=== PATIENT | male | born 1960 | race Caucasian/White ===

== ENCOUNTER 2019-11-05 05:27 | Day surgery (SDC) ==
--- NOTE | 2019-10-29 09:00 | EKG Report ---
Test Performed on : 10/29/2019 08:55:40 AM Test Reason : PAT Blood Pressure : / mmHG Vent. Rate : 064 BPM Atrial Rate : 064 BPM P-R Int : 228 ms QRS Dur : 094 ms QT Int : 392 ms P-R-T Axes : 033 046 010 degrees QTc Int : 404 ms Sinus rhythm. with 1st degree AV block. Otherwise normal ECG No previous ECGs available Confirmed by Kimo Mcduffie MD ([id number]) on 10/30/2019 2:34:18 PM
[2019-10-29 09:35] LABS: URINE SOURCE CLEAN CATCH
[2019-10-29 09:50] LABS: BASO% 1.2 % (0.0-0.8); EOS# 0.37 X1000 (0.0-0.7); EOS% 4.3 % (0.0-10.0); HEMATOCRIT 43.9 % (42.0-52.0); HEMOGLOBIN 14.1 g/dL (14.0-18.0); LYMPH# 1.23 X1000 (1.2-3.4); LYMPH% 14.3 % (20.5-51.1); MCH 29.4 PG (27-31); MCHC 32.1 g/dL (33-37); MCV 91.6 FL (81-99); MONO# 0.58 X1000 (0.11-0.59); MONO% 6.8 % (1.7-9.3); MPV 9.5 FL (7.4-10.4); NEUT% 73.4 % (42.2-75.2); PLT 339 X1000 (130-400); RBC 4.79 XMIL (4.7-6.1); RDW 13.4 % (11.5-14.5); WBC 8.58 X1000 (4.8-10.8)
[2019-10-29 09:54] LABS: BILIRUBIN URINE NEGATIVE (NEGATIVE); BLOOD URINE NEGATIVE (NEGATIVE); COLOR YELLOW; GLUCOSE URINE NEGATIVE (NEGATIVE); KETONE URINE NEGATIVE (NEGATIVE); LEUKOCYTES URINE NEGATIVE (NEGATIVE); NITRITE URINE NEGATIVE (NEGATIVE); PH URINE 6.5; PROTEIN URINE NEGATIVE (NEGATIVE); SP GRAVITY URINE 1.025; TURBIDITY URINE CLEAR (CLEAR); UROBILINOGEN URINE 4 mg/dL (NORMAL)
[2019-10-29 09:56] LABS: UR EPITHELIAL CELLS <10 /HPF (<10); URINE BACTERIA NEGATIVE /HPF; URINE RBC <10 /HPF (<10); URINE WBC <10 /HPF (<10)
[2019-10-29 09:58] LABS: INR 1.01; PROTIME 13.4 Seconds (11.0-16.0)
[2019-10-29 09:59] LABS: PTT 30.7 Seconds (22.3-41.8)
[2019-10-29 10:15] LABS: HEMOGLOBIN A1C 5.6 % (4.8-6.0)
[2019-10-29 10:22] LABS: AGAP 10; ALBUMIN 3.8 g/dL (3.5-5.0); BUN 18 mg/dL (8-22); CALCIUM 9.3 mg/dL (8.8-10.2); CHLORIDE 102 mmol/L (98-107); COSMO 283; CREATININE 0.9 mg/dL (0.7-1.2); ESTIMATED GFR > 60; GLUCOSE 87 mg/dL (70-104); POTASSIUM 3.8 mmol/L (3.5-5.1); SODIUM 141 mmol/L (136-145); TCO2 29 mmol/L (25-35)
[2019-11-05] MEDS ORDERED: KEFZOL 1 GM/D5W 2 GM/100 ML IVPB ONE (05:53)
[2019-11-05] MEDS ORDERED: REGLAN ONE (05:53)
[2019-11-05] MEDS ORDERED: LYRICA ONE (05:53)
[2019-11-05] MEDS ORDERED: PEPCID ONE (05:53)
[2019-11-05] MEDS ORDERED: CELEBREX ONE (05:53)
[2019-11-05] MEDS ORDERED: LR 1,000 ML ONE (05:53)
[2019-11-05] MEDS ORDERED: COLACE ONE ×2 (05:53→06:06)
[2019-11-05] MEDS ORDERED: VANCOMYCIN ONE (06:27)
[2019-11-05] MEDS ORDERED: SENSORCAINE 0.25%/EPI 1:200,000 ONE (06:27)
[2019-11-05] MEDS ORDERED: TORADOL ONE (06:27)
[2019-11-05] MEDS ORDERED: SODIUM CHLORIDE 0.9% ONE (06:27)
[2019-11-05] MEDS ORDERED: DURAMORPH ONE (06:27)
[2019-11-05] MEDS ORDERED: NEOSPORIN G.U. IRRIGANT ONE (06:28)
[2019-11-05] MEDS ORDERED: EXPAREL 1.3% ONE (06:28)
[2019-11-05] MEDS ORDERED: DIPRIVAN 1% ONE ×2 (06:34→06:51)
[2019-11-05] MEDS ORDERED: XYLOCAINE-MPF 2% ONE (06:36)
[2019-11-05] MEDS ORDERED: FENTANYL ONE (06:37)
[2019-11-05] MEDS ORDERED: VERSED ONE (06:38)
[2019-11-05] MEDS: CYKLOKAPRON 1,000 MG/NS 2,000 MG/200 ML IVPB ONE ×2 (07:14→08:31)
[2019-11-05] MEDS ORDERED: DECADRON ONE (07:34)
[2019-11-05] MEDS ORDERED: OFIRMEV 1000 MG/ISOTONIC SOLN 1,000 MG/100 ML BOTTLE ONE (07:34)
[2019-11-05] MEDS ORDERED: ZOFRAN ONE (08:28)
[2019-11-05] MEDS ORDERED: NS 1,000 ML ONE (09:20)
--- NOTE | 2019-11-05 10:00 | Diag Imaging Result Doc PS360 ---
KNEE 1-2 VIEWS-LEFT - 11/05/2019 INDICATION: left TKA TECHNIQUE: Two views COMPARISON: None FINDINGS: There has been left total knee arthroplasty with patellar resurfacing. Alignment is anatomic. No hardware fracture or loosening. IMPRESSION: No complication. Electronically signed by Amari Lee 11/05/2019 9:58 AM
[2019-11-05] MEDS ORDERED: OXY IR PO PRN ×2 (10:15)
[2019-11-05] MEDS ORDERED: ZOFRAN PO PRN (10:15)
[2019-11-05] MEDS ORDERED: MORPHINE IV PRN ×3 (10:15)
[2019-11-05] MEDS ORDERED: MILK OF MAGNESIA PO PRN (10:15)
[2019-11-05] MEDS: TYLENOL PO SCH ×2 (12:22→18:45)
[2019-11-05] MEDS ORDERED: NEURONTIN PO PRN (13:07)
[2019-11-05 14:28] LABS: URINE SOURCE CATH
[2019-11-05 14:34] LABS: BILIRUBIN URINE NEGATIVE (NEGATIVE); BLOOD URINE TRACE (NEGATIVE); COLOR YELLOW; GLUCOSE URINE NEGATIVE (NEGATIVE); KETONE URINE NEGATIVE (NEGATIVE); LEUKOCYTES URINE NEGATIVE (NEGATIVE); NITRITE URINE NEGATIVE (NEGATIVE); PH URINE 7.5; PROTEIN URINE NEGATIVE (NEGATIVE); SP GRAVITY URINE 1.022; TURBIDITY URINE HAZY (CLEAR); UROBILINOGEN URINE NORMAL (NORMAL)
[2019-11-05 14:35] LABS: UR EPITHELIAL CELLS <10 /HPF (<10); URINE BACTERIA NEGATIVE /HPF; URINE WBC <10 /HPF (<10)
--- NOTE | 2019-11-05 17:42 | OPERATIVE NOTE ---
PROCEDURE DATE: PREOPERATIVE DIAGNOSIS: Degenerative osteoarthritis left knee. POSTOPERATIVE DIAGNOSIS: Degenerative osteoarthritis left knee. PROCEDURE: Left total knee arthroplasty with Attune size 9 posterior stabilized femur, a size 9 tibial tray, a 5 mm rotating platform tibial insert, and a 38 mm medialized anatomic patella. SURGEON: Dr. Sabas Friedman. 1ST CREDIT INTERN: DAGO Daniels, necessary proper position, retraction and manipulation of the extremity during the case and improved efficiency. SECOND CREDIT INTERN: Camron Odell RN. ANESTHESIA: Spinal. IV FLUIDS: 1500 mL lactated Ringer's. ESTIMATED BLOOD LOSS: 35 mL. TOURNIQUET TIME: 85 minutes at 350 mmHg. INDICATION: The patient is a pleasant 59-year-old male with chronic history of worsening pain and discomfort of his left knee. Has continued pain and discomfort despite appropriate nonoperative and operative treatment with a knee arthroscopy. Patient was noted to have significant osteoarthritis. He has continued pain and discomfort. His pain has worsened and has progressed to affect his activities of daily living. Recommendation to proceed with left total knee arthroplasty was offered. The risks and benefits of surgery were explained, including the risks of anesthesia, , bleeding, infection, failure to relieve pain, postoperative stiffness nerve injury, blood clots, and other imponderables. All questions answered. Patient and family wished to proceed with surgery. PROCEDURE: The patient was taken to the operative room, underwent spinal anesthesia. After adequate anesthesia was obtained, patient's left lower extremity was subsequently prepped and draped in usual sterile fashion. An Esmarch was used to exsanguinate the left lower extremity and tourniquet was inflated to 350 mmHg. A standard anterior incision was made with a skin knife. Medial and lateral skin envelopes were developed and patella fat pad was excised. Retractors were then placed. Approximately 1 cm anterior to the PCL insertion, a starting reamer was passed. Intramedullary guide with a distal femur cutting block was pinned in position. Distal femoral cut was then performed in standard fashion. The sizing block was then placed and was measured size 9. Corresponding pins were placed. A size 9 cutting block was pinned in position. Anterior, posterior, and chamfer cuts were then made. Attention then turned to the proximal tibia. Using the extramedullary guide, the proximal tibia cutting block was pinned in position. Had good alignment confirmed with the alignment kate. The proximal tibia was then resected. Medial and lateral menisci were excised. A curved osteotome was used to remove the posterior osteophytes off the distal femur. The spacer block was then placed. Had good soft tissue balancing in both flexion and extension. Attention then turned back to the proximal tibia where a size 9 tibial tray appeared be correct size was pinned in position followed by a central reamer and a fin punch. A box cutting guide was then pinned on the distal femur. A box cut was then performed. After this had been performed, a trial femoral component was then placed and 2 lug holes were drilled. Trial tibial insert was then placed and good soft tissue balancing. The patella was everted and resected in standard fashion. Patella clamp was then placed. Size 38 appeared to correct size. Corresponding holes were drilled. The trial patella component then placed and gets good patellofemoral tracking. After this had been performed, the trial components were removed. Copious irrigation was then performed with antibiotic pulsatile lavage. Vancomycin was mixed in the cement on the back table. Sequential cementing was then performed first with the tibial tray and excess cement was removed with a [place] followed by the femoral component and excess cement was removed with a [place]. A trial tibial insert was then placed in full extension. Axial loading was maintained while cement cured. The patella component was then cemented in standard fashion. Patella clamp was placed. Exparel was then placed in deep soft tissue as well as subcutaneous tissue. After cement had cured, peripheral cement was removed with a small osteotome. The 5 mm rotating platform tibial insert appeared to correct size. Exparel was placed in the deep posterior capsule. The wound was copiously irrigated with antibiotic pulsatile lavage. A 5 mm rotating platform tibial insert was then placed. The knee was then carried through range of motion. It had good range of motion, good soft tissue balance, good patellofemoral tracking. A 1/8 Hemovac drain was placed was not sewn in. Copious irrigation performed once again with antibiotic pulsatile lavage. Number 1 Vicryl then used to repair the arthrotomy followed by 2-0 Vicryl to the subcutaneous tissue and skin celina. Adaptic, sterile 4 x 4, Webril, cryo unit, and Emmanuel wrap to the left lower extremity. Patient tolerated the procedure well and was transferred to recovery room in stable condition. cc: Sabas Friedman MD
[2019-11-05] MEDS ORDERED: VANCOMYCIN 1 GM/NS 1 GM/250 ML IVPB IV ONE (18:00)
[2019-11-05] MEDS: NS 1,000 ML IV SCH ×2 (18:46→21:47)
[2019-11-05] MEDS: COLACE PO SCH (21:47)
[2019-11-05] MEDS: PERIDEX MT SCH (21:47)
[2019-11-06] MEDS: TYLENOL PO SCH ×2 (00:35→07:59)
[2019-11-06] MEDS: NS 1,000 ML IV SCH (01:06)
[2019-11-06] MEDS ORDERED: XARELTO PO SCH (06:00)
--- NOTE | 2019-11-06 06:38 | ORTHOPAEDICS PROGRESS NOTE ---
DATE: 11/06/2019 SUBJECTIVE: The patient is a pleasant 59-year-old male who is 1 day status post left total knee arthroplasty. He is currently resting comfortably. The patient has no complaints this morning. Was able to ambulate with physical therapy yesterday. PHYSICAL EXAMINATION: Patient's left lower extremity is wound looks good. There is no signs or symptoms of infection. His calf is soft. He has active dorsiflexion and plantar flexion. He is neurovascularly distally. His labs are pending this morning. IMPRESSION: Postoperative day #1 status post left total knee arthroplasty. PLAN: At this point, the patient will be discharged home after physical therapy. He will follow up in the office in on 11/17/2019. cc: Sabas Friedman MD
[2019-11-06] MEDS ORDERED: NEXIUM PO SCH (07:00)
[2019-11-06 07:36] LABS: HEMOGLOBIN 11.9 g/dL (14.0-18.0)
[2019-11-06 07:39] LABS: AGAP 7; BUN 16 mg/dL (8-22); CALCIUM 9.1 mg/dL (8.8-10.2); CHLORIDE 102 mmol/L (98-107); COSMO 280; CREATININE 0.8 mg/dL (0.7-1.2); ESTIMATED GFR > 60; GLUCOSE 121 mg/dL (70-104); POTASSIUM 3.9 mmol/L (3.5-5.1); SODIUM 139 mmol/L (136-145); TCO2 30 mmol/L (25-35)
[2019-11-06 07:56] VITALS: BP 143/88
[2019-11-06] MEDS ORDERED: ADALAT CC PO SCH (09:00)
[2019-11-06] MEDS ORDERED: FLOMAX PO SCH (09:00)
[2019-11-06] MEDS ORDERED: SINGULAIR PO SCH (09:00)
[2019-11-06] MEDS ORDERED: COZAAR PO SCH (09:00)
[2019-11-06] MEDS ORDERED: FLONASE NAS SCH (09:00)
[2019-11-06] MEDS ORDERED: ZOLOFT PO SCH (09:00)
[2019-11-06] MEDS ORDERED: ZIAC 5/6.25 MG PO SCH (09:00)
[2019-11-06] MEDS: COLACE PO SCH (09:13)
[2019-11-06] MEDS: PERIDEX MT SCH (09:13)
== END 2019-11-06 09:36 | disposition home health service (06) ==
LOC: 4N 05:27 → OR 05:27
PROVIDERS: ATTEND Orthopaedic Surgery Adult Reconstructive Orthopaedic Surgery